=== PATIENT | female | born 1995 | race American Indian/Alaskan Native ===

== ENCOUNTER 2018-10-13 12:38 | Emergency (ER) | payer MEDICAID ==
[~2018-10-13] VITALS: Ht 160 cm; Wt 60.9 kg
[2018-10-13 12:46] VITALS: Ht 160 cm; Wt 60.9 kg
[2018-10-13 16:20] VITALS: BP 122/74
== END 2018-10-13 16:20 | disposition home or self-care (01) ==
LOC: ED 12:38
DX: G43.909 Migraine, unspecified, not intractable, without status migrainosus (principal); R20.0 Anesthesia of skin; Z90.89 Acquired absence of other organs
CPT/HCPCS: 82962; J3030